=== PATIENT | male | born 1955 | race Caucasian/White ===

== ENCOUNTER 2019-08-14 12:55 | Emergency (ER) | payer SELFPAY ==
[~2019-08-14] VITALS: Ht 152.4 cm; Wt 100.2 kg
[2019-08-14 15:31] VITALS: BP 141/80
== END 2019-08-14 15:31 | disposition home or self-care (01) ==
LOC: ED 12:55
DX: R05 Cough (principal); R07.89 Other chest pain; R06.02 Shortness of breath

== ENCOUNTER 2019-08-20 04:02 | Emergency (ER) | payer SELFPAY ==
[~2019-08-20] VITALS: Ht 170.2 cm; Wt 114.3 kg
[2019-08-20 04:06] VITALS: Ht 170.2 cm; Wt 114.3 kg
[2019-08-20 04:52] LABS: CALCIUM 8.6 mg/dL (8.5-10.1); CARBON DIOXIDE 29.8 mmol/L (21-32); CHLORIDE SERUM 104 mmol/L (98-107); CREATININE SERUM 1.1 mg/dL (0.7-1.3); GFR1 > 60 mL/min; GLUCOSE SERUM 110 mg/dL (74-106); SODIUM SERUM 142 mmol/L (136-145)
[2019-08-20 04:56] LABS: ALBUMIN 3.7 g/dL (3.4-5.0); ALKALINE PHOSPHATASE 88 U/L (46-116); ALT/SGPT 161 U/L (16-63); AST/SGOT 36 U/L (15-37); BILIRUBIN TOTAL 0.38 mg/dL (0.20-1.00); TOTAL PROTEIN, SERUM 7.3 g/dL (6.4-8.2)
[2019-08-20 05:04] LABS: BASOPHIL % 0.5 % (0-2); PLATELET COUNT 372 x10^3mcL (130-400); RED CELL DISTRIBUTION WIDTH 13.4 % (11.5-14.5)
[2019-08-20 06:47] VITALS: BP 124/70
== END 2019-08-20 09:37 | disposition home or self-care (01) ==
LOC: ED 04:02
DX: J20.9 Acute bronchitis, unspecified (principal)
CPT/HCPCS: 36415; J7613; J7644; Q0092